=== PATIENT | male | born 1965 | race African-American/Black ===

== ENCOUNTER 2020-06-23 16:35 | Emergency (ER) | payer OTHER ==
[2020-06-23 17:12] VITALS: TEMP 99.8; BMI 31.6
[2020-06-23] MEDS ORDERED: ACETAMINOPHEN 325 MG TABLET (FP) PO ONE (18:04)
[2020-06-23] MEDS ORDERED: LACTATED RINGERS SOLUTION 1000 ML INFUS.BAG IV ONE (18:15)
[2020-06-23] MEDS ORDERED: ACETAMINOPHEN 1000 MG/100 ML VIAL (NON FORMULARY) IVPB ONE (19:18)
[2020-06-23] MEDS ORDERED: ACETAMINOPHEN INJECTION 100 ML IVPB ONE (19:28)
[2020-06-23 19:29] LABS: HEMATOCRIT 45.3 % (35.4-49); HEMOGLOBIN 15.1 GM/dL (11.7-16.9); MCH 27.3 pg (25.7-33.7); MCHC 33.2 g/dl (32.0-35.9); MEAN CELL VOLUME 82.2 fl (80-96); MEAN PLT VOLUME 7.7 fl (7.5-11.1); PLATELET COUNT 279 K/MM3 (134-434); RBC 5.51 M/mm3 (4.00-5.60); RDW 14.8 % (11.9-15.9); WHITE BLOOD COUNT 8.5 K/mm3 (4.0-10.0)
[2020-06-23 19:52] LABS: POTASSIUM 4.1 mmol/L (3.5-5.1)
[2020-06-23 19:54] LABS: ALBUMIN 3.6 g/dl (3.4-5.0); BLOOD UREA NITROGEN 7.2 mg/dL (7-18); CALCIUM 8.9 mg/dL (8.5-10.1)
[2020-06-23 19:57] LABS: CREATININE 0.9 mg/dL (0.55-1.3)
[2020-06-23 19:59] LABS: BILIRUBIN,TOTAL 1.1 mg/dL (0.2-1); TOT PROT 7.9 g/dl (6.4-8.2)
[2020-06-23 22:03] VITALS: BP 141/92; PULSE 73
== END 2020-06-23 22:04 | disposition home or self-care (01) ==
LOC: JER 16:35
PROC: 3E0333Z Introduction of Anti-inflammatory into Peripheral Vein, Percutaneous Approach (ICD-10-PCS; principal; 2020-06-23)
DX: K57.92 Diverticulitis of intestine, part unspecified, without perforation or abscess without bleeding (principal)
CPT/HCPCS: 36415; 74176-TC; 80053; 85027; 99284-25; J0131

== ENCOUNTER 2023-09-16 09:05 | Emergency (ER) | payer OTHER ==
[2023-09-16 09:20] VITALS: BP 146/80; PULSE 72; RESP 18; TEMP 97.8; BMI 33.3
[2023-09-16] MEDS ORDERED: KETOROLAC TROMETHAMINE 30 MG/1 ML VIAL ONE (10:29)
[2023-09-16] MEDS ORDERED: LIDOCAINE 4% PATCH TP ONE (10:29)
[2023-09-16] MEDS ORDERED: predniSONE 20 MG TABLET (UD) ONE (10:29)
[2023-09-16] MEDS: KETOROLAC TROMETHAMINE 30 MG/1 ML VIAL IM ONE (10:36)
[2023-09-16] MEDS: LIDOCAINE 5% TOPICAL PATCH TP ONE (10:36)
[2023-09-16] MEDS: predniSONE 20 MG TABLET (UD) PO ONE (10:36)
[2023-09-16] MEDS ORDERED: LIDOCAINE PATCH REMOVAL MC ONE (22:00)
== END 2023-09-16 10:42 | disposition home or self-care (01) ==
LOC: JERFT 09:05
PROC: 3E0233Z Introduction of Anti-inflammatory into Muscle, Percutaneous Approach (ICD-10-PCS; principal; 2023-09-16)
DX: M54.42 Lumbago with sciatica, left side (principal)
CPT/HCPCS: 99284-25